=== PATIENT | female | born 1975 | race Caucasian/White ===

== ENCOUNTER → 2019-03-14 | Outpatient (CLI) | payer OTHER ==
[~2019-03-14] MED LIST: CEPH250A PO; RXCEPH500 PO; RXSULTRIDS PO; SULTRISS PO
== END | disposition home or self-care (01) ==
LOC: LAB 17:24 → LAB SHORT 17:24
PROVIDERS: Nurse Practitioner Women's Health
DX: Z12.4 Encounter for screening for malignant neoplasm of cervix (principal)
CPT/HCPCS: 87624; G0123

== ENCOUNTER → 2025-03-18 | Outpatient (CLI) | payer OTHER | END | disposition home or self-care (01) | LOC: LAB 11:42 → LAB SHORT 11:42 | DX: E65 Localized adiposity (principal) | CPT/HCPCS: 87070; 87075; 87077; 87147; 87186; 87205 ==